=== PATIENT | female | born 1985 | race Caucasian/White ===

== ENCOUNTER 2020-07-14 23:13 | Emergency (ER) | payer OTHER, MEDICAID ==
[~2020-07-14] VITALS: Ht 177.8 cm; Wt 122.9 kg
[~2020-07-14 23:13] MED LIST: CLEOCIN HCL300 MG PO; ERY-TAB250 MG PO; IBUPROFEN 800800 MG PO; IRON; METHOCARBAMOL750 MG PO; NABUMETONE 500500 M1 PO; NOHOMEMEDICATIONS; NORCO 5-325 TA1 EACH PO; ONDANSETRON HCL4 M2 PO; PERCOCET 5-3251 EACH PO; PRENATAL; SUDAFED 12 HOU120 MG PO; TRAMADOL 50 MG50 MG PO; ZANTAC 150MG T150 M1 PO
[2020-07-15 00:18] LABS: URINE BILIRUBIN NEGATIVE (Negative); URINE BLOOD NEGATIVE (Negative); URINE CLARITY CLEAR; URINE COLOR YELLOW; URINE GLUCOSE-RANDOM NEGATIVE (Negative); URINE KETONES NEGATIVE (Negative); URINE LEUKOCYTES-REFLEX NEGATIVE (Negative); URINE NITRITE-REFLEX NEGATIVE (Negative); URINE PROTEIN NEGATIVE (Negative); URINE SPECIFIC GRAVITY >= 1.030 (1.005-1.030); URINE UROBILINOGEN 0.2 E.U./dl (0.2-1.0)
[2020-07-15 00:24] LABS: AMP/METHAMP Negative (Negative); BARBITURATES Negative (Negative); BENZODIAZEPINES Negative (Negative); COCAINE Negative (Negative); METHADONE Negative (Negative); OPIATES Negative (Negative); PCP Negative (Negative); THC POSITIVE (Negative)
[2020-07-15 00:29] LABS: ABSOLUTE BASOPHILS 0.1 thou/uL (0.0-0.2); ABSOLUTE LYMPHOCYTES 1.7 thou/uL (0.8-5.3); ABSOLUTE MONOCYTES 0.7 thou/uL (0.0-1.2); ABSOLUTE NEUTROPHILS 6.3 thou/uL (1.6-8.1); BASOPHILS 0.7 %; EOSINOPHILS 0.4 %; HEMATOCRIT 38.9 % (37.0-47.0); HEMOGLOBIN 13.2 gm/dL (12.0-15.0); LYMPHOCYTES 19.8 %; MCH 26.5 pg (26.0-34.0); MCHC 33.9 g/dL (28.0-37.0); MCV 78.1 fL (80.0-100.0); MONOCYTES 7.5 %; MPV 8.9 fl. (7.2-11.1); NUCLEATED RBCS 0 /100WBC; PLATELET COUNT* 211 thou/uL (150-400); POLYS 71.6 %; RBC 4.97 mil/uL (4.20-5.00); RDW-CV 14.7 % (10.5-14.5); WBC 8.7 thou/uL (4.0-11.0)
[2020-07-15 00:31] LABS: CALCIUM 8.2 mg/dL (8.5-10.1); CREATININE 1.2 mg/dL (0.6-1.3)
[2020-07-15 00:35] LABS: ALBUMIN 3.7 g/dL (3.4-5.0); TOTAL BILIRUBIN 0.2 mg/dL (<0.1-1.0); TOTAL PROTEIN 7.4 g/dL (6.4-8.2)
[2020-07-15] MEDS ORDERED: TORADOL 10 MG T10 MG PO (00:53)
[2020-07-15] MEDS ORDERED: CYCLOBENZAPRINE5 MG PO (00:53)
[2020-07-15 01:14] VITALS: BP 128/73
== END 2020-07-15 01:15 | disposition home or self-care (01) ==
LOC: M.ERS 23:13
PROVIDERS: Personal Emergency Response Attendant
DX: M79.18 Myalgia, other site (principal); M54.2 Cervicalgia; R07.89 Other chest pain; F17.210 Nicotine dependence, cigarettes, uncomplicated; Z88.0 Allergy status to penicillin; Z88.2 Allergy status to sulfonamides; Z90.49 Acquired absence of other specified parts of digestive tract

== ENCOUNTER 2021-02-20 17:00 | Emergency (ER) | payer OTHER, MEDICAID ==
[~2021-02-20] VITALS: Ht 177.8 cm; Wt 122.5 kg
[~2021-02-20 17:00] MED LIST changes: +CYCLOBENZAPRINE5 MG PO; +TORADOL 10 MG T10 MG PO
[2021-02-20] MEDS ORDERED: MEDROLDOSEPACK PO (17:42)
[2021-02-20] MEDS ORDERED: NABUMETONE 750750 M1 PO (17:42)
[2021-02-20] MEDS ORDERED: HYDROCODON-ACE1 EAC7 PO (17:43)
[2021-02-20 17:53] VITALS: BP 142/98
== END 2021-02-20 17:53 | disposition home or self-care (01) ==
LOC: M.ERS 17:00
DX: S16.1XXA Strain of muscle, fascia and tendon at neck level, initial encounter (principal); F17.210 Nicotine dependence, cigarettes, uncomplicated; Z90.49 Acquired absence of other specified parts of digestive tract; Z88.2 Allergy status to sulfonamides; Z88.0 Allergy status to penicillin; X50.9XXA Other and unspecified overexertion or strenuous movements or postures, initial encounter; Y93.89 Activity, other specified; Y92.89 Other specified places as the place of occurrence of the external cause; Y99.8 Other external cause status